=== PATIENT | male | born 1990 | race Caucasian/White ===

== ENCOUNTER 2021-09-01 14:35 | Emergency (ER) | payer OTHER ==
[~2021-09-01] VITALS: Ht 167.6 cm; Wt 63.5 kg
[2021-09-01 14:38] VITALS: BP_SYST 148
[2021-09-01] MEDS ORDERED: IBUP-1971 PO (15:20)
[2021-09-01] MEDS ORDERED: AMOX-423 PO (15:20)
[2021-09-01] MEDS ORDERED: BACITRACIN 1 GM OINT TP ONE (15:30)
[2021-09-01 15:58] VITALS: BP_SYST 139
== END 2021-09-01 15:58 | disposition home or self-care (01) ==
LOC: SED 14:35
DX: S61.431A Puncture wound without foreign body of right hand, initial encounter (principal); Z79.899 Other long term (current) drug therapy; W54.0XXA Bitten by dog, initial encounter; Y93.89 Activity, other specified; Y92.89 Other specified places as the place of occurrence of the external cause; Y99.8 Other external cause status
CPT/HCPCS: 99283